=== PATIENT | male | born 1995 | race Caucasian/White ===

== ENCOUNTER 2016-12-10 17:04 | Emergency (ER) | payer OTHER ==
[~2016-12-10] VITALS: Ht 182.9 cm; Wt 96.5 kg
[2016-12-10 17:05] VITALS: TEMP 36.7; O2SAT 98; Ht 182.9 cm; Wt 96.5 kg
[2016-12-11 02:05] VITALS: BP 123/61; PULSE 85; O2SAT 99
--- NOTE | 2016-12-11 03:42 | EMERGENCY ROOM VISIT NOTE ---
History First contact with patient: 17:03 Chief Complaint: ALCOHOL OVERDOSE Stated Complaint: ETOH, History of Present Illness The patient is a 21 year old male who presents to the Emergency Room via ambulance after being found intoxicated at the football game this afternoon. According to stadium crew, the patient was witnessed staggering and falling, face planting onto the ground. It is unknown whether the patient was on grass, pavement or other surface. They did not notice any loss of consciousness. When asking the patient what happened, he reports that he must have tripped. He does admit to significant alcohol consumption today, but does not recall the amount other than "lots". He denies any illicit drug use. He denies any other injuries or pain at this time. The patient is a [employer] student. Review of Systems 10 system review was performed and was negative except for pertinent positives and negatives as indicated in history of present illness Past Medical/Surgical History Medical Problems: (1) No significant past medical history Surgical Problems: (1) No history of previous surgery Family History Unremarkable Social History Smoking Status: Never Smoker Alcohol Use: occasionally Marital Status: single Housing Status: lives with friends Occupation Status: [employer] student Current/Historical Medications Unable to Obtain Active Prescriptions or Reported Meds Physical Exam Vital Signs Date Time Temp Pulse Resp B/P (MAP) Pulse Ox O2 Delivery O2 Flow Rate FiO2 12/11/16 02:05 85 17 123/61 99 Room Air 12/11/16 01:27 74 18 144/84 98 Room Air 12/10/16 23:49 78 18 159/79 98 Room Air 12/10/16 22:29 105 18 109/60 100 Room Air 12/10/16 20:35 92 18 129/72 96 Room Air 12/10/16 19:22 94 17 114/63 95 Room Air 12/10/16 18:00 93 22 105/57 94 12/10/16 17:30 98 24 128/64 95 12/10/16 17:05 36.7 121 20 145/92 96 Room Air 12/10/16 17:05 98 Room Air Physical Exam CONSTITUTIONAL: Healthy and well nourished. GCS 15. Strong smell of alcohol is present. The patient is pleasant and cooperative. HEENT: Normocephalic, atraumatic. Pupils equal, round and reactive. No epistaxis, hemotympanum, raccoon's eyes or Nair sign. NECK: Full active range of motion without discomfort. RESPIRATORY: Clear to auscultation bilaterally with no wheezing, crackles, rhonchi or stridor. CARDIOVASCULAR: Regular rate and rhythm with no murmurs, rubs or gallops. GASTROINTESTINAL: Bowel sounds present in all quadrants. Soft and nontender to palpation. MUSCULOSKELETAL: Full range of motion of all joints without discomfort. INTEGUMENTARY: No rash or other significant dermatologic conditions noted. NEUROLOGIC: No focal neurologic deficits noted. Medical Decision & Procedures Laboratory Results Test 12/10/16 18:03 Ethyl Alcohol mg/dL 310.7 mg/dl (0-3) ED Course Patient history and physical exam were performed. Nurse's notes were reviewed. Vital signs were reviewed and were normal. The patient is pleasant and cooperative. The patient was placed on classroom monitor and in prone position. Blood alcohol level was drawn, and was 310.7. The patient was resting comfortably and had no other adverse reactions while in the emergency department. The patient was instructed to remain well-hydrated and avoid alcohol over the next 48 hours. Was also advised that he is underage drinking. The patient was provided contact information for the [facility] for completion. He was encouraged to follow-up with [facility] as needed for further management. Medical Decision Medication Reconcilliation Current Medication List: was personally reviewed by me Blood Pressure Screening Patient's blood pressure: Normal blood pressure Impression Primary Impression: Alcohol overdose Departure Information Prescriptions Unable to Obtain Active Prescriptions or Reported Meds Referrals No Doctor, Assigned (PCP) Patient Instructions [facility] Problem Qualifiers Primary Impression: Alcohol overdose Encounter type: initial encounter Injury intent: undetermined intent Qualified Codes: T51.94XA - Toxic effect of unspecified alcohol, undetermined, initial encounter
== END 2016-12-11 02:10 | disposition home or self-care (01) ==
LOC: C.EDA 17:08 → C.ED 12-11 02:10
DX: T51.91XA Toxic effect of unspecified alcohol, accidental (unintentional), initial encounter (principal)